=== PATIENT | female | born 1950 | race Caucasian/White ===

== ENCOUNTER 2021-01-17 14:24 | Outpatient (CLI) | payer MEDICARE, SELFPAY ==
--- NOTE | ~2021-01-17 | XR_ITS ---
EXAMINATION: XR shoulder RT min 2V DATE: 01/17/2021 15:02 INDICATION: Right shoulder pain. TECHNIQUE: 4 views of right shoulder were obtained. COMPARISON: None. FINDINGS: Bone alignment is normal. No fracture. There is mild osteoarthritis of glenohumeral joint a nd acromioclavicular joint characterized by tiny marginal osteophytes. IMPRESSION: 1. Mild polyarticular osteoarthritis. Reviewed, dictated and finalized at location A.
--- NOTE | ~2021-01-17 | MM_ITS ---
EXAMINATION: MM screening ravindra BI w lenin HISTORY: Screening mammogram TECHNIQUE: Craniocaudal and mediolateral oblique 3-D tomosynthesis images were obtained and synthetic 2-D images were generated. CAD analysis was submitted and interpreted. COMPARISON: Serial mammograms dating back to 02/16/2010 BREAST PARENCHYMAL COMPOSITION: The breasts are heterogeneously dense, which may obscure small masses . FINDINGS: Bilateral microcalcifications; magnification views are recommended for more optimal demonst ration. Stable approximately 4.8 mm circumscribed opacity in the posterior upper left breast on MLO view, pre sent on 02/26/2010, consistent with stable benign intramammary lymph node. Apparently new 4.3 mm opacity in the posterior mid right breast on MLO view near the posterior margin of the mammogram. Recommend diagnostic right mammogram, with ultrasound if required. Otherwise there is no evidence of suspicious mass, or architectural distortion to suggest malignancy in either breast. There has been no other suspicious interval change. IMPRESSION: 1. Bilateral microcalcifications and apparently new 4.3 mm opacity in the posterior central right ameya ast on MLO view. 2. Bilateral diagnostic mammography with magnification views of bilateral calcifications and compress ion view of posterior 4.3 mm opacity in the central posterior right breast on MLO view, with ultrasou nd if required is recommended BI-RADS Category 0: Incomplete: Needs additional imaging evaluation. Reviewed, dictated and finalized at location A. IMPRESSION: 1. Bilateral microcalcifications and apparently new 4.3 mm opacity in the poste rior central right breast on MLO view. 2. Bilateral diagnostic mammography with magnification views of bilateral calci fications and compression view of posterior 4.3 mm opacity in the central poste rior right breast on MLO view, with ultrasound if required is recommended BI-RADS Category 0: Incomplete: Needs additional imaging evaluation.
== END 2021-01-17 14:25 | disposition home or self-care (01) ==
LOC: CHSIMG 14:30
PROVIDERS: PCP Family Medicine; Visit Provider Family Medicine
DX: Z12.31 Encounter for screening mammogram for malignant neoplasm of breast (principal); M25.511 Pain in right shoulder
CPT/HCPCS: 73030; 77063; 77067

== ENCOUNTER 2021-02-27 09:47 | Outpatient (CLI) | payer MEDICARE, SELFPAY ==
--- NOTE | ~2021-02-27 | MMUS_ITS ---
EXAMINATION: MM diagnostic ravindra BI w lenin, US breast RT complete HISTORY: Follow-up breast calcifications TECHNIQUE: Additional 3-D tomosynthesis images of the breasts were performed and synthetic 2-D images were generated. CAD analysis was submitted and interpreted. High resolution right complete breast ul trasound was performed. COMPARISON: Comparison to multiple prior studies sequentially, with oldest reviewed study dated 04/2013. BREAST PARENCHYMAL COMPOSITION: The breasts are heterogenously dense, which may obscure small masses. FINDINGS: MAMMOGRAPHIC FINDINGS: There are punctate calcifications in the upper outer quadrant of the both breasts, which are likely b enign. No discrete masses or architectural distortion is identified. There are benign intramammary an d axillary lymph nodes. ULTRASOUND: Complete right breast ultrasound: At 12:00, 4 cm from the nipple, there is irregular hypoechoic mass with posterior shadowing and ill-defined margins.. There are mildly prominent subareolar ducts. At 11 :00 near the nipple there is a hypoechoic mass measuring 6 mm without significant posterior features. At 10:00, 9 cm from the nipple there is an intramammary lymph node measuring 9 mm. In the right axil la there is a 1.3 cm lymph node with normal fatty hilum. IMPRESSION: 1. Irregular hypoechoic mass at 12:00, 4 cm from the nipple in the right breast. Hypoechoic 6 mm mass of the right breast in the subareolar location. 2. Ultrasound-guided right breast biopsies recommended. 3: Probable benign bilateral breast calcifications. Six-month follow-up diagnostic bilateral mammogra m recommended to assess stability. BI-RADS category 4, suspicious findings. Reviewed, dictated and finalized at location A. IMPRESSION: 1. Irregular hypoechoic mass at 12:00, 4 cm from the nipple in the right breast . Hypoechoic 6 mm mass of the right breast in the subareolar location. 2. Ultrasound-guided right breast biopsies recommended. 3: Probable benign bilateral breast calcifications. Six-month follow-up diagnos tic bilateral mammogram recommended to assess stability. BI-RADS category 4, suspicious findings.
== END 2021-02-27 09:48 | disposition home or self-care (01) ==
LOC: CHSIMG 09:48
PROVIDERS: PCP Family Medicine; Visit Provider Nurse Practitioner
DX: R92.8 Other abnormal and inconclusive findings on diagnostic imaging of breast (principal)
CPT/HCPCS: 76641; 77062; 77066; G0279

== ENCOUNTER 2021-10-05 09:06 | Outpatient (CLI) | payer MEDICARE, SELFPAY ==
--- NOTE | ~2021-10-05 | MMUS_ITS ---
EXAMINATION: MM diagnostic ravindra BI w lenin, US breast BI complete HISTORY: Irregular hypoechoic right breast mass at 12:00 4 cm from nipple, hypoechoic 6 mm subareolar mass of right breast and bilateral probable benign breast calcifications; six-month follow-up TECHNIQUE: ML, MLO and CC full field and spot 3-D tomosynthesis images of both breasts were performed and synthetic 2-D images were generated. CAD analysis was submitted and interpreted. High resolution bilateral complete breast ultrasound including all 4 quadrants and subareolar areas was performed. COMPARISON: 02/27/2021 bilateral diagnostic mammogram and complete right breast ultrasound 01/17/2021 and 03/02/2018 bilateral screening mammogram examinations BREAST PARENCHYMAL COMPOSITION: There are scattered areas of fibroglandular density. FINDINGS: MAMMOGRAPHIC FINDINGS: 2 biopsy markers are noted on the right; history of prior benign right breast biopsy in July 2021 There is interval focal increased density in the right superolateral subareolar area since 01/27/2021, posterior to the previously reported small biopsied mass in the lateral subareolar area. Otherwise no interval suspicious mass, architectural distortion, malignant calcification, skin thicke pascual or retraction of either breast is detected. Occasional bilateral benign-appearing microcalcifications. ULTRASOUND: Right breast: 12:00 subareolar: There is an antiparallel very irregular hypoechoic 8mm deep by 5.8 mm wide mass wit h internal vascularity, very suspicious. Ultrasound-guided biopsy is recommended. 9:00 4 cm from nipple: Approximately 3.3 x 5 mm x 6.3 probable lymph node. Left breast: 7:00 near nipple: Parallel circumscribed 4.1 x 2.2 x 4.5 mm hypoechoic solid lesion without suspiciou s shadowing. IMPRESSION: 1. Suspicious antiparallel very irregular hypoechoic 8 x 5.8 mm mass at subareolar 12:00 location, ne w finding 2. Ultrasound-guided biopsy of right 12:00 subareolar mass is recommended BI-RADS category 4, suspicious findings. Dr. Farah telephoned the report and ultrasound-guided biopsy recommendation on October 05, 2021 at [address] Gonzalez. Reviewed, dictated and finalized at location A. RINARY TECHNICIAN ASSISTANT IMPRESSION: 1. Suspicious antiparallel very irregular hypoechoic 8 x 5.8 mm mass at subareo lar 12:00 location, new finding 2. Ultrasound-guided biopsy of right 12:00 subareolar mass is recommended BI-RADS category 4, suspicious findings. Dr. Farah telephoned the report and ultrasound-guided biopsy recommendation on [facility] [address] Gonzalez. IMPRESSION: 1. Suspicious antiparallel very irregular hypoechoic 8 x 5.8 mm mass at subareo lar 12:00 location, new finding 2. Ultrasound-guided biopsy of right 12:00 subareolar mass is recommended BI-RADS category 4, suspicious findings. Dr. Farah telephoned the report and ultrasound-guided biopsy recommendation on [facility] [address] Gonzalez.
== END 2021-10-05 09:07 | disposition home or self-care (01) ==
LOC: CHSIMG 09:07
PROVIDERS: PCP Family Medicine; Visit Provider Family Medicine
DX: R92.8 Other abnormal and inconclusive findings on diagnostic imaging of breast (principal)
CPT/HCPCS: 76641; 77062; 77066; G0279

== ENCOUNTER 2021-10-10 12:47 | Outpatient (CLI) | payer MEDICARE, SELFPAY ==
--- NOTE | ~2021-10-10 | MMUS_ITS ---
EXAMINATION: US breast biopsy RT w image, MM post biopsy diagnostic RT DATE: 10/10/2021 13:46 (accession [id number]), 10/10/2021 14:08 (accession [id number]) INDICATION: Indeterminate subareolar right breast mass. Ultrasound-guided core biopsy is requested to evaluate for malignancy. TECHNIQUE AND FINDINGS: The risks and potential benefits of the procedure were discussed with the patient including bleeding and infection. A time out was performed. The skin of the right breast was prepared and draped in usua l sterile fashion. 1% lidocaine was used for superficial anesthesia. 1% lidocaine with epinephrine wa s used for deep anesthesia. A vacuum-assisted biopsy gun needle was advanced through to the outer edge of the region of interest from an inferior approach utilizing sonographic guidance. A total of four tissue core samples were o btained through the lesion. A ribbon tissue marker clip was then placed at the biopsy site. Hemostasi s was achieved. A sterile bandage was applied. The patient tolerated procedure well and there was no evidence of immediate complication. The patient was given verbal instructions to return to the Emergency Department in the event of severe breast pa in or rapid breast enlargement. A two view right breast mammogram was obtained to document tissue mar ker clip placement. Post biopsy mammogram demonstrates a new ribbon marker adjacent to an X shaped ma rker. IMPRESSION: 1. Successful ultrasound-guided vacuum-assisted biopsy of right breast mass with ribbon tissue marker placement. Reviewed, dictated and finalized at location D. BUFFER IMPRESSION: 1. Successful ultrasound-guided vacuum-assisted biopsy of right breast mass wit h ribbon tissue marker placement.
== END 2021-10-10 12:48 | disposition home or self-care (01) ==
LOC: CHSIMG 12:49
PROVIDERS: PCP Family Medicine; Visit Provider Family Medicine
DX: R92.8 Other abnormal and inconclusive findings on diagnostic imaging of breast (principal)
CPT/HCPCS: 19083; 77065; 88305; A4648

== ENCOUNTER 2023-02-05 10:40 | Outpatient (CLI) | payer MEDICARE, SELFPAY ==
--- NOTE | ~2023-02-05 | MM_ITS ---
EXAMINATION: MM screening ravindra BI w lenin HISTORY: Screening mammogram TECHNIQUE: Craniocaudal and mediolateral oblique 3-D tomosynthesis images were obtained and synthetic 2-D images were generated. CAD analysis was submitted and interpreted. COMPARISON: 10/10/2021 right ultrasound-guided breast biopsy (benign fibrocystic change) 10/05/2021 diagnostic bilateral mammogram and bilateral complete breast ultrasound examination 02/27/2021 bilateral diagnostic mammogram and complete right breast ultrasound 01/17/2021, 03/02/2018 bilateral screening mammogram examinations BREAST PARENCHYMAL COMPOSITION: There are scattered areas of fibroglandular density. FINDINGS: Biopsy markers are noted on the right; history of prior benign breast biopsies. Occasional bilateral benign calcifications. There is no evidence of suspicious mass, calcification, or c architect ural distortion to suggest malignancy in either breast. There has been no suspicious interval change. IMPRESSION: 1. No mammographic evidence of malignancy. 2. Recommend routine screening mammography in one year. BI-RADS Category 2: Benign finding(s). Reviewed, dictated and finalized at location A.
== END 2023-02-05 10:41 | disposition home or self-care (01) ==
LOC: CHSIMG 10:43
PROVIDERS: PCP Family Medicine; Visit Provider Family Medicine
DX: Z12.31 Encounter for screening mammogram for malignant neoplasm of breast (principal)
CPT/HCPCS: 77063; 77067

== ENCOUNTER 2023-03-20 11:47 | Outpatient (CLI) | payer MEDICARE, SELFPAY | END 2023-03-20 11:48 | disposition home or self-care (01) | PROVIDERS: PCP Family Medicine; Visit Provider Nurse Practitioner | DX: M79.671 Pain in right foot (principal) | CPT/HCPCS: 73630 ==

== ENCOUNTER 2024-04-09 10:38 | Outpatient (CLI) | payer MEDICARE, SELFPAY ==
--- NOTE | ~2024-04-09 | MM_ITS ---
EXAMINATION: MM screening ravindra BI w lenin HISTORY: Screening TECHNIQUE: Craniocaudal and mediolateral oblique 3-D tomosynthesis images were obtained and synthetic 2-D images were generated. CAD analysis was submitted and interpreted. COMPARISON: Comparison to multiple prior studies sequentially, with oldest reviewed study dated 03/02. BREAST PARENCHYMAL COMPOSITION: Dense: The breasts are heterogeneously dense, which may obscure small masses FINDINGS: There is no evidence of suspicious mass, calcification, or architectural distortion to sugg est malignancy in either breast. There has been no suspicious interval change. IMPRESSION: 1. No mammographic evidence of malignancy. 2. Recommend routine screening mammography in one year. BI-RADS Category 1: Negative Reviewed, dictated and finalized at location B.
== END 2024-04-09 10:39 | disposition home or self-care (01) ==
LOC: CHSIMG 10:41
PROVIDERS: PCP Nurse Practitioner; Visit Provider Nurse Practitioner
DX: Z12.31 Encounter for screening mammogram for malignant neoplasm of breast (principal)
CPT/HCPCS: 77063; 77067

== ENCOUNTER 2025-04-12 12:19 | Outpatient (CLI) | payer MEDICARE, SELFPAY ==
--- NOTE | ~2025-04-12 | MM_ITS ---
EXAMINATION: MM screening [facility] BI w [facility] HISTORY: Screening TECHNIQUE: Craniocaudal and mediolateral oblique 3-D tomosynthesis images were obtained and synthetic 2-D images were generated. CAD analysis was submitted and interpreted. COMPARISON: Mammograms from 04/09/2024 and 02/05/2023 BREAST PARENCHYMAL COMPOSITION: The breasts are heterogeneously dense, which may obscure small masses. FINDINGS: There is no evidence of suspicious mass, calcification, or architectural distortion to suggest malignancy. There has been no suspicious interval change. IMPRESSION: 1. No mammographic evidence of malignancy. Recommend routine screening mammography in one year. BI-RADS Category 2: Benign finding(s) Reviewed, dictated and finalized at location Q. IMPRESSION: 1. No mammographic evidence of malignancy. Recommend routine screening mammogra phy in one year. BI-RADS Category 2: Benign finding(s)
--- OUTSIDE RECORDS SUMMARY | 2025-04-12 12:23 | XMS_ITS | Clinical Summary ---
Author Organization [facility] Address [address] [place] [address] Care Team Providers Care Director Of Occupational Therapy Name Role Phone Phillip Gonzalez MD Primary Care Provider [phone] Encounters Date Type Department Care Team Description 01/27/2025 Patient Out[facility] [address] [place] [address] Ray Villalpando, on site services specialist Medication ([id number] PCIN Medication adherence review. 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 Gender Identity Not on file Sexual Orientation Not on file Last Filed Vital Signs Vital Sign Reading Time Taken Comments Blood Pressure - - Pulse - - Temperature - - Respiratory Rate - - Oxygen Saturation - - Inhaled Oxygen Concentration - - Weight 61.2 kg (135 lb) 10/30/2015 2:52 PM CDT Height 160 cm (5' 3) 10/30/2015 2:52 PM CDT Body Mass Index 23.91 10/30/2015 2:52 PM CDT Plan of Treatment Health Maintenance Due Date Last Done Comments Colorectal Cancer Screening Colonoscopy (10 Years) 1950 Hepatitis C 1968 DTaP, Tdap and Td Vaccines ( 1 - Tdap) 1969 Pneumococcal Vaccine: 50+ Years (1 of 1 - PCV) 2000 Annual Medicare Wellness Visit 2015 Mammogram Screening 03/14/2023 03/14/2021 COVID-19 Vaccine (4 - 2023-2 5 season) 2024 07/14/2021, 10/11/2020, 09/13/2020 RSV Immunization or 60+ Years (1 - 1-dose 75+ series) 2025 Zoster Vaccines Completed 08/26/2020, 04/29/2020 Dexa Scan (General) Completed 04/01/2023 Meningococcal B Vaccine Aged Out No l onger eligible based on patient's age to complete this topic Meningococcal Vaccine Aged Out No alma kori eligible based on patient's age to complete this topic RSV Immunizations Under 20 Months Aged Out No longer eligible b ased on patient's age to complete this topic Procedures Procedure Name Priority Date/Time Associated Diagnosis Comments BONE DENSITY/DEXA Routine 04/01/2023 12: 07 PM CDT Screening for osteoporosis Postmenopausal MG POST PROC RT DIAG MAMMO Routine 03/14/2021 9:10 AM CDT Abnormal mammogram from Last 3 Months or Most Recently Relevant to Health Maintenance Results * BONE DENSITY/DEXA (04/01/2023 12:07 PM CDT) Anatomical Region Laterality Modality Bone Bone Density 04/01/2023 10:4 0 AM CDT Impressions 04/01/2023 10:42 AM CDT Impression: 1. Consistent with osteopenia in the lumbar spine and left hip. 2. Consistent with osteoporosis in the right hip. Ordered By: TAMAR MARKS Interpreted By: Alex Olson MD, 04/01/2023 10:40 AM Narrative 04/01/2023 10:42 AM CDT Examination: DEXA Bone densitometry Clinical history: Postmenopausal. Osteoporosis screening. Comparison: None. Technique: DEXA bone mineral density evaluation was performed in the AP projection over the lumbar spine and over both hips in the AP projection utilizing standard imaging techniques. Assessment: The BMD measured at the AP spine L1-L4 is 0.842 g/cm2 with a T-score of -1.9 and a Z-score of 0.4. The patient is considered osteopenic according to World Health Organization (WHO) criteria. Bone density is between 10 and 25% below young normal. Fracture risk is moderate. Treatment is advised. The BMD measured at the femoral neck left is 0.619 g/cm2 with a T-score of -2.1 and a Z-score of -0.1. The patient is considered osteopenic according to World Health Organization (WHO) criteria. Bone density is between 10 and 25% below young normal. Fracture risk is moderate. Treatment is advised. The BMD measured at the femoral neck right is 0.529 g/cm2 with a T-score of -2.9 and a Z-score of -0.9. This patient is considered osteoporotic according to the world health organizations (WHO) criteria. Fracture risk is high. Pharmacological treatment, if not already prescribed should be considered. If pharmacological treatment is utilized, a followup bone density is recommended in one year to monitor response to therapy. FRAX 10-year fracture risk: Major Osteoporotic Fracture: 16%. Hip Fracture: 5.4%. Recommendations: All patients should ensure an adequate intake of dietary calcium and vitamin D. The NOF recommend adults under the age of 50 need 1000 mg of calcium and 400-800 IU of vitamin D daily. Effective therapy for the prevention and treatment of osteoporosis include biphosphonates. Follow-up: People with diagnosed cases of osteoporosis or at high risk for fracture should have regular bone mineral density test. For patients eligible for Medicare, routine testing is allowed once every 2 years. Testing frequency can be increased to one year for patients who have rapidly progressing disease, those who are receiving or discontinuing medical therapy to restore bone mass, or have additional risk factors. Based on these results, a followup exam is recommended in 1-2 years. Procedure Note Alex Olson MD - 04/01/2023 Examination: DEXA Bone densitometry Clinical history: Postmenopausal. Osteoporosis screening. Comparison: None. Technique: DEXA bone mineral density evaluation was performed in the APprojection over the lumbar spine and over both hips in the AP projectionutilizing standard imaging techniques. Assessment: The BMD measured at the AP spine L1-L4 is 0.842 g/cm2 with a T-score of-1.9 and a Z-score of 0.4. The patient is considered osteopenicaccording to World Health Organization (WHO) criteria. Bone density isbetween 10 and 25% below young normal. Fracture risk is moderate.Treatment is advised. The BMD measured at the femoral neck left is 0.619 g/cm2 with a T-score of-2.1 and a Z-score of -0.1. The patient is considered osteopenicaccording to World Health Organization (WHO) criteria. Bone density isbetween 10 and 25% below young normal. Fracture risk is moderate.Treatment is advised. The BMD measured at the femoral neck right is 0.529 g/cm2 with a T-scoreof -2.9 and a Z-score of -0.9. This patient is considered osteoporoticaccording to the world health organizations (WHO) criteria. Fracture riskis high. Pharmacological treatment, if not already prescribed should beconsidered. If pharmacological treatment is utilized, a followup bonedensity is recommended in one year to monitor response to therapy. FRAX 10-year fracture risk: Major Osteoporotic Fracture: 16%. Hip Fracture: 5.4%. Recommendations: All patients should ensure an adequate intake of dietary calcium andvitamin D. The NOF recommend adults under the age of 50 need 1000 mg ofcalcium and 400-800 IU of vitamin D daily. Effective therapy for theprevention and treatment of osteoporosis include biphosphonates. Follow-up: People with diagnosed cases of osteoporosis or at high risk for fractureshould have regular bone mineral density test. For patients eligible forMedicare, routine testing is allowed once every 2 years. Testing frequencycan be increased to one year for patients who have rapidly progressingdisease, those who are receiving or discontinuing medical therapy torestore bone mass, or have additional risk factors. Based on these results, a followup exam is recommended in 1-2 years. Impression: 1. Consistent with osteopenia in the lumbar spine and left hip. 2. Consistent with osteoporosis in the right hip. Ordered By: TAMAR MARKS Interpreted By: Alex Olson MD, 04/01/2023 10:40 AM us Tamar Marks APNP DEXA Final Resul t * MG POST PROC RT DIAG MAMMO (03/14/2021 9:10 AM CDT) Anatomical Region Laterality Modality Breast Right Mammography 03/14/2021 9:05 AM CDT Impressions 03/15/2021 4:13 PM CDT IMPRESSION: 1. Successful ultrasound-guided biopsy indeterminate heterogeneous right 12:00 shadowing structure. Open heart biopsy clip in satisfactory position. Pathology pending. 2. Successful ultrasound-guided biopsy indeterminant right 11:00 solid mammographically occult nodule. X-shaped biopsy clip in satisfactory position sonographically. Pathology pending 12:00 PATHOLOGY RESULTS: The pathology results yielded:Benign breast parenchyma with dense nodular fibrosis and apocrine cysts. Calcifications present in benign ducts. No in situ or invasive carcinoma identified. Please refer to the official pathology report for details. These findings are BENIGN and CONCORDANT with imaging. 11:00 PATHOLOGY RESULTS: The pathology results yielded:Fibroadenomatoid nodule with apocrine metaplasia. Please refer to the official pathology report for details. These findings are BENIGN and CONCORDANT with imaging. RECOMMENDATION: As per department protocol a 6 MONTH FOLLOW-UP BILATERAL DIAGNOSTIC MAMMOGRAM AND ULTRASOUND is recommended to demonstrate stability in the biopsied areas x2 and additional probably benign findings detailed on diagnostic study performed 02/27/2021. These findings and recommendations conveyed to the patient by our department navigator Tanya Lipscomb via telephone report. Reports were faxed to the ordering physician for review. Referred By: PHILLIP GONZALEZ Interpreted By: Minoo Go MD, 03/14/2021 9:05 AM Narrative 03/15/2021 4:13 PM CDT EXAM: RIGHT BREAST ULTRASOUND GUIDED CORE BIOPSY WITH CLIP PLACEMENT [id number] INDICATION: Indeterminant sonographic structures x2 PROCEDURE: Patient was referred for ultrasound-guided core biopsy of heterogeneous right 12:00 hypoechoic focal shadowing structure spanning maximally 6 mm located 4 cm from nipple and additional periareolar 11:00 nodule labeled #2 measuring maximally 7 mm demonstrated on [facility] [place], [place] diagnostic study performed 02/27/2021 .I provided a [id number] consultation prior to the scheduled procedure. The procedure, risks, benefits, and alternatives explained to the patient. Written informed consent obtained. Preprocedure timeout performed using 2 patient identifiers. Patient confirmed the side and type of procedure. I briefly reviewed the patient's medication list in person and verbally prior to the procedure. 12:00 BIOPSY: Maximal sterile barrier technique was utilized for the entire procedure including handwashing with conventional soap-water and/or alcohol based hand store cashier along with sterile ultrasound technique. Subsequently lidocaine alone and lidocaine/epinephrine administered for local anesthesia with attention was directed to the target. Using Bard Marquee 14 gauge biopsy device with coaxial guide, multiple core samples were obtained through the target and confirmed on orthogonal views. Open heart biopsy clip placed in satisfactory position in this region under ultrasound guidance. Samples were sent to pathology for review. 11:00 BIOPSY: Maximal sterile barrier technique was utilized for the entire procedure including handwashing with conventional soap-water and/or alcohol based hand store cashier along with sterile ultrasound technique. Subsequently lidocaine alone and lidocaine/epinephrine administered for local anesthesia with attention was directed to the target. Using Bard Marquee 14 gauge biopsy device with coaxial guide, multiple core samples were obtained through the target and confirmed on orthogonal views. X-shaped biopsy clip placed in satisfactory position in this region under ultrasound guidance. Samples were sent to pathology for review. POST PROCEDURE MAMMOGRAM: Digital mammogram performed in a separate work room demonstrates the open heart clip partial correlating with one of the mammographic areas of concern. The X-shaped biopsy clip is in the periareolar breast with no discrete mammographic correlate as this appears to represent incidental sonographically detected finding. Patient tolerated the procedure well and there were no immediate complications. Written and verbal post procedure care instructions given to her prior to her departure. Procedure Note Minoo Go MD - 03/15/2021 EXAM: RIGHT BREAST ULTRASOUND GUIDED CORE BIOPSY WITH CLIP PLACEMENT [id number] INDICATION: Indeterminant sonographic structures x2 PROCEDURE: Patient was referred for ultrasound-guided core biopsy ofheterogeneous right 12:00 hypoechoic focal shadowing structure spanningmaximally 6 mm located 4 cm from nipple and additional periareolar 11:00nodule labeled #2 measuring maximally 7 mm demonstrated on [facility][1] in [place], [place] diagnostic study performed02/27/2021 .I provided a [id number] consultation prior to the scheduledprocedure. The procedure, risks, benefits, and alternatives explained tothe patient. Written informed consent obtained. Preprocedure timeoutperformed using 2 patient identifiers. Patient confirmed the side and typeof procedure. I briefly reviewed the patient's medication list in personand verbally prior to the procedure. 12:00 BIOPSY: Maximal sterile barrier technique was utilized for theentire procedure including handwashing with conventional soap-water and/oralcohol based hand store cashier along with sterile ultrasound technique.Subsequently lidocaine alone and lidocaine/epinephrine administered forlocal anesthesia with attention was directed to the target. Using BardMarquee 14 gauge biopsy device with coaxial guide, multiple core sampleswere obtained through the target and confirmed on orthogonal views. Openheart biopsy clip placed in satisfactory position in this region underultrasound guidance. Samples were sent to pathology for review. 11:00 BIOPSY: Maximal sterile barrier technique was utilized for theentire procedure including handwashing with conventional soap-water and/oralcohol based hand store cashier along with sterile ultrasound technique.Subsequently lidocaine alone and lidocaine/epinephrine administered forlocal anesthesia with attention was directed to the target. Using BardMarquee 14 gauge biopsy device with coaxial guide, multiple core sampleswere obtained through the target and confirmed on orthogonal views.X-shaped biopsy clip placed in satisfactory position in this region underultrasound guidance. Samples were sent to pathology for review. POST PROCEDURE MAMMOGRAM: Digital mammogram performed in a separate workroom demonstrates the open heart clip partial correlating with one of themammographic areas of concern. The X-shaped biopsy clip is in theperiareolar breast with no discrete mammographic correlate as this appearsto represent incidental sonographically detected finding. Patient tolerated the procedure well and there were no immediatecomplications. Written and verbal post procedure care instructions givento her prior to her departure. IMPRESSION: 1. Successful ultrasound-guided biopsy indeterminate heterogeneous right12:00 shadowing structure. Open heart biopsy clip in satisfactory position. Pathology pending. 2. Successful ultrasound-guided biopsy indeterminant right 11:00 solidmammographically occult nodule. X-shaped biopsy clip in satisfactory position sonographically. Pathology pending 12:00 PATHOLOGY RESULTS: The pathology results yielded:Benign breast parenchyma with dense nodularfibrosis and apocrine cysts. Calcifications present in benign ducts. No insitu or invasive carcinoma identified. Please refer to the officialpathology report for details. These findings are BENIGN and CONCORDANT with imaging. 11:00 PATHOLOGY RESULTS: The pathology results yielded:Fibroadenomatoid nodule with apocrinemetaplasia. Please refer to the official pathology report for details. These findings are BENIGN and CONCORDANT with imaging. RECOMMENDATION: As per department protocol a 6 MONTH FOLLOW-UP BILATERAL DIAGNOSTICMAMMOGRAM AND ULTRASOUND is recommended to demonstrate stability in thebiopsied areas x2 and additional probably benign findings detailed ondiagnostic study performed 02/27/2021. These findings and recommendations conveyed to the patient by [facility] navigator Tanya Lipscomb via telephone report. Reports werefaxed to the ordering physician for review. Referred By: PHILLIP GONZALEZ Interpreted By: Minoo Go MD, 03/14/2021 9:05 AM us Phillip Gonzalez MD MAMMO Final Result from Last 3 Months or Most Recently Relevant to Health Maintenance Insurance MED REPLACE [facility] MEDICARE AET[employer] Care Teams Director Of Occupational Therapy Relationship Specialty Start Date End Date Phillip Gonzalez MD [address] [place] [id number] PCP - General FAMILY PRACTICE 03/14/21
--- OUTSIDE RECORDS SUMMARY | 2025-04-12 12:23 | XMS_ITS | Encounter Summary ---
Author Organization [facility] Address [facility] [place] [address] Care Team Providers Care Director Clinical Research Name Role Phone Filippo Gonzalez MD Primary Care Provider [phone] Encounter Details Date Type Department Care Team (Late st Contact Info) Description 01/16/2019 Abstract [facility]FL CONVERSION [address] [place] [address] , Generic Conversion, Social History Tobacco Use Types Packs/Day Years Used Date Smoking Tobacco: Never Assessed Comments Unknown Sex and Gender Information Value Date Recorded Sex Assigned at Not on file 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
--- OUTSIDE RECORDS SUMMARY | 2025-04-12 12:23 | XMS_ITS | Encounter Summary ---
Author Organization [facility] Address [address] [place] [address] Care Team Providers Care Bingo Usher Name Role Phone Unavailable Primary Care Provider Unavailabl e Encounter Details Date Type Department Care Team (Late st Contact Info) Description 06/23/2020 Lab Requisition [facility] DermPath Lab [address] [place] [phone] Suman Del Valle MD [address] [place] [address] Social History Tobacco Use Types Packs/Day Years Used Date Smoking Tobacco: Never Assessed Comments Unknown Sex and Gender Information Value Date Recorded Sex Assigned at Not on file Legal Sex Female 3:14 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 Gender Identity Not on file Sexual Orientation Not on file documented as of this encounter Plan of Treatment Not on file documented as of this encounter Procedures Procedure Name Priority Date/Time Associated Diagnosis Comments DERMATOPATHOLOGY Routine 06/21/2020 12:0 0 AM CURTAIN FELLER BLINDSTITCH documented in this encounter Results * DERMATOPATHOLOGY (06/21/2020 12:00 AM CURTAIN FELLER BLINDSTITCH) Case Report Dermatopathology Report Case: [id number] Authorizing Provider: Suman Del Valle MD Collected: 06/21/2020 12:00 AM Ordering Location: [facility] DermPath Lab Received: 06/23/2020 06:21 AM Pathologist: Chelsie Pacheco MD Specimen: Skin, lower back 0 4:45 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 DERMAT[facility]Y LABORATORY Final Diagnosis Specimen A. 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 Path # [id number]. 0 4:45 PM [facility] DERMATOPATHOLOGY [facility]ORAT[facility] Gross Description Specimen A: Received is one formalin filled container labeled with the patient's name and designated lower back. The specimen consists of a shave biopsy measuring [id number]. Jar 0. 0 4:45 PM [facility] DERMATOPATHOLOGY [facility]ORATORY Microscopic Description Specimen A. SKIN, lower back: The epidermis is focally necrotic and covered with a scale-crust. There is fibrin at the base. There is focal parakeratosis and mild spongiosis of the epidermis. In the dermis there is a perivascular and interstitial infiltrate including lymphocytes and eosinophils. Grocott's methenamine silver (GMS) stain fails to highlight fungal elements in the available sections. Additional deeper sections were obtained and reviewed. COMMENT: These histologic findings can be seen in contact dermatitis, an eczematous drug reaction and less likely, the urticarial phase of bullous pemphigoid. 0 4:45 PM [facility] DERMATOPATHOLOGY [facility]ORAT[facility] Disclaimer An external and internal positive and negative controls are appropriate for the histochemical, immunohistochemical and immunofluorescence stain(s) in this case (if any), except where stated explicitly. The performance characteristics of the stain(s) cited in this report were developed and its performance characteristic determined by the Dermatopathology Laboratory at [facility], directed by Dr. Benjamin Murguia. These tests need not be, and therefore are not, approved by the [place] Food and Drug Administration. The tests are used for clinical purposes. Billing Codes Specimen Charges Stain Charges 94956 1 97349 1 0 4:45 PM [facility]ER[facility] Embedded Images 0 4:45 PM [facility] Pathology/Cytolog y TISSUE SPECIMEN FROM SKIN / Unknown 06/21/2020 06/23/2020 6:21 AM CURTAIN FELLER BLINDSTITCH us Suman Del Valle MD LAB - PATHOLOGY/CYTOLOGY ORDER [id number] Final Result DERMATOPATHOLOGY LABORATORY [facility] - Department of Dermatology [address], [address] [phone] documented in this encounter Visit Diagnoses Not on filedocumented in this encounter
--- OUTSIDE RECORDS SUMMARY | 2025-04-12 12:23 | XMS_ITS | Clinical Summary ---
Author Organization [facility] Address [address] [place] [address] Care Team Providers Care Marble Supervisor Name Role Phone Unavailable Primary Care Provider Unavailabl e Source Comments [facility],non-owned Affiliates and Associated Physician Practices is amultiple site organization consisting of ambulatory clinics and hospital sitesin [place], [place], [place] and [place]. This disclosure is being madepursuant to the Care Everywhere program and may not contain all information available regarding this patient. 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 Gender Identity Not on file Sexual Orientation Not on file Plan of Treatment Health Maintenance Due Date Last Done Comments BONE DENSITY TESTING 1950 COLOGUARD (AGES 45-75) - COL ON CA SCREENING 1950 COLON MONITORING 1950 COLONOSCOPY - COLON CA SCREENING 1950 CT COLONOGRAPHY - COLON CA SCREENING 1950 Colorectal Cancer Screening 1950 FIT - COLON CA SCREENING 1950 FLEX SIG - COLON CA SCREENING 1950 LIPID TESTING 1950 MAMMOGRAM 1950 HEPATITIS C SCREENING 05/06/1968 DTAP/TDAP/TD VACCINES (1 - Tdap) 1969 PNEUMOCOCCAL VACCINE 50+ (1 of 1 - PCV) 2000 ZOSTER VACCINE (1 of 2) 2000 COVID-19 VACCINE ( - 2023-2 5 season) 2024 DEPRESSION SCREENING 08/11/2024 INFLUENZA VACCINE (#1) 2025 Respiratory Syncytial Virus (RSV) Vaccine Pt: or over 60 yrs (1 - 1-dose 75+ series) 2025 HEPATITIS B VACCINE Aged Out No longe r eligible based on patient's age to complete this topic HIB VACCINE Aged Out No longer eligi ble based on patient's age to complete this topic HPV VACCINE Aged Out No longer eligi ble based on patient's age to complete this topic MENINGOCOCCAL (Group B) VACC INE SHARED DECISION-MAKING Aged Out No longer eligibl e based on patient's age to complete this topic MENINGOCOCCAL GROUPS A/C/Y/W VACCINE Aged Out No longer eligible b ased on patient's age to complete this topic Insurance MANAGED MEDICARE ADV
== END 2025-04-12 12:20 | disposition home or self-care (01) ==
DX: Z12.31 Encounter for screening mammogram for malignant neoplasm of breast (principal)
CPT/HCPCS: 77063; 77067